=== PATIENT | male | born 1950 | race Caucasian/White ===

== ENCOUNTER 2019-09-08 08:00 | Day surgery (SDC) | payer MEDICARE, MEDICAID ==
[2019-09-08] VITALS (11 sets, daily range): BP systolic 118–151; BP diastolic 70–93
[~2019-09-08] VITALS: Ht 182.9 cm; Wt 120.4 kg
[~2019-09-08 08:00] MED LIST: AMLO10TA4 PO; FERR-86 PO; FOLI1TAB16 PO; HYDR-4353 PO; METO100T14 PO; OMEP20CA15 PO; PRAV40TA3 PO
[2019-09-08] MEDS ORDERED: LORazepam 0.5 MG tablet PO PRN (08:25)
[2019-09-08] MEDS ORDERED: normal saline 1,000 ML IV SCH (08:25)
[2019-09-08] MEDS ORDERED: nitroGLYCERIN 0.4mg SUBLingual tab SL PRN (08:25)
[2019-09-08] MEDS ORDERED: diphenhydrAMINE 25mg capsule PO PRN (08:25)
[2019-09-08] MEDS ORDERED: ATOR-2 PO (09:28)
[2019-09-08] MEDS ORDERED: LOSA100T57 PO (09:28)
[2019-09-08] MEDS ORDERED: CHLO25TA10 PO (09:33)
[2019-09-08] MEDS ORDERED: ASPI-1265 PO (09:33)
[2019-09-08] MEDS ORDERED: UBID10CA4 PO (09:33)
[2019-09-08] MEDS ORDERED: NITR0.4T48 SL (09:33)
[2019-09-08 09:36] LABS: BASOPHILS # (AUTO) 0.1 X10'3 (0-0.2); BASOPHILS % (AUTO) 0.8 % (0-1); EOSINOPHILS # (AUTO) 0.2 X10'3 (0-0.9); EOSINOPHILS % (AUTO) 2.4 % (0-6); HEMATOCRIT 43.9 % (42.0-52.0); HEMOGLOBIN 13.7 g/dl (14.0-17.9); LYMPHOCYTES # (AUTO) 1.1 X10'3 (1.1-4.8); LYMPHOCYTES % (AUTO) 12.5 % (21-51); MEAN CORPUSCULAR HEMOGLOBIN 21.5 PG (27.0-31.0); MEAN CORPUSCULAR HGB CONC 31.1 g/dL (33.0-36.5); MONOCYTES # (AUTO) 0.9 X10'3 (0-0.9); MONOCYTES % (AUTO) 10.6 % (2-12); NEUTROPHILS # (AUTO) 6.6 X10'3 (1.8-7.7); NEUTROPHILS % (AUTO) 73.7 % (42-75); PLATELET COUNT 173 X10'3 (140-440); RED BLOOD COUNT 6.36 X10'6 (4.70-6.10); RED CELL DISTRIBUTION WIDTH 18.1 % (11.5-14.5); WHITE BLOOD COUNT 8.9 X10'3 (4.5-11.0)
[2019-09-08 09:40] LABS: ALBUMIN 3.8 G/DL (3.4-5.0); ANION GAP 10 (8-16); BLOOD UREA NITROGEN 23 MG/DL (7-18); BUN/CREATININE RATIO 17.8 (5.4-32.0); CALCIUM 9.5 MG/DL (8.5-10.1); CHLORIDE 103 MMOL/L (99-107); CREATININE 1.29 MG/DL (0.60-1.10); GLUCOSE 101 MG/DL (70-104); POTASSIUM 3.3 MMOL/L (3.5-5.1); SODIUM 139 MMOL/L (135-145); TOTAL CARBON DIOXIDE 26.5 MMOL/L (24-32); eGFR 55 ML/MIN
[2019-09-08 09:44] LABS: PARTIAL THROMBOPLASTIN TIME 27 SECONDS (22-32)
[2019-09-08 10:03] LABS: ANISOCYTOSIS 2+; ELLIPTOCYTES 1+; MICROCYTOSIS 2+; PLATELET ESTIMATE NORMAL
[2019-09-08 10:04] LABS: LARGE PLATELETS FEW; SCHISTOCYTES FEW
[2019-09-08] MEDS ORDERED: midazolam 2 mg/2 ml injection ONE (11:08)
[2019-09-08] MEDS ORDERED: LIDOcaine 1% (10mg/ml)w/preservative injection 20ml MDV ONE (11:09)
[2019-09-08] MEDS ORDERED: heparin 1,000 UNITS/NS 500ml 500 ML ONE ×2 (11:09)
[2019-09-08] MEDS ORDERED: iohexol 350MG/ML 100ml bottle IV ONE ×2 (11:09→11:54)
[2019-09-08] MEDS ORDERED: fentaNYL/PF 50MCG/1 ML 2ML syringe ONE (11:09)
[2019-09-08] MEDS ORDERED: iohexol 350 MG/ML 50ML vial IV ONE (11:09)
[2019-09-08] MEDS ORDERED: ondansetron/PF 4mg/2ml inj IV PRN (12:50)
[2019-09-08] MEDS ORDERED: HYDROcodone/acetaminophen 5mg/325mg tablet PO PRN (12:50)
[2019-09-08] MEDS ORDERED: proCHLORperazine 10 MG/2 ml inj IV PRN (12:55)
[2019-09-08] MEDS ORDERED: OXAZEpam 15mg capsule PO PRN (12:55)
[2019-09-08] MEDS ORDERED: HYDROcodone/acetaminophen 10/325mg tab PO PRN (12:55)
[2019-09-08] MEDS ORDERED: metoprolol tartrate 25mg tablet PO SCH (20:00)
== END 2019-09-08 17:00 | disposition home or self-care (01) ==
LOC: SSTAY O 08:00 → MED 3N 08:06 → SSTAY O 17:00
PROVIDERS: ATTEND Internal Medicine Cardiovascular Disease
DX: R94.39 Abnormal result of other cardiovascular function study (principal); I25.10 Atherosclerotic heart disease of native coronary artery without angina pectoris; I25.82 Chronic total occlusion of coronary artery; I10 Essential (primary) hypertension; M19.90 Unspecified osteoarthritis, unspecified site; E78.5 Hyperlipidemia, unspecified; I25.2 Old myocardial infarction; Z96.651 Presence of right artificial knee joint; Z88.8 Allergy status to other drugs, medicaments and biological substances; Z95.1 Presence of aortocoronary bypass graft; Z87.891 Personal history of nicotine dependence; Z79.899 Other long term (current) drug therapy; Z79.82 Long term (current) use of aspirin; Z79.01 Long term (current) use of anticoagulants
CPT/HCPCS: 36415; 71046; 80048; 85025; 85610; 85730; 93005; 93459; 99152; 99153; C1769; J1644; J2001; J2250; J3010; J7030; Q0163; Q9967; A4620; C1751; C1760